=== PATIENT | female | born 1940 | race Caucasian/White ===

== ENCOUNTER 2017-11-14 11:14 | Emergency (ER) | payer MEDICARE, OTHER ==
[~2017-11-14] VITALS: Ht 154.9 cm; Wt 81.0 kg
[~2017-11-14 11:14] MED LIST: AMLO10 PO; DOCU1CAP39 PO; FERR324T4 PO; Hydrocodone/Acetaminophen PO; LEVA750T PO; MELO7.5T PO; PRED10 PO; PROT40TA PO; WARF5 PO
[2017-11-14 11:19] VITALS: BP 161/68; PULSE 69; RESP 16; TEMP 98.6; O2SAT 98
--- NOTE | 2017-11-14 11:38 | PD ---
HPI Chief Complaint: Complaint Time Seen by Provider: 11:30 Travel History International Travel<30 days: No Contact w/Intl Traveler<30days: No Traveled to known affect area: No History of Present Illness HPI The patient was seen and examined in the presence of the nurse. This patient complains of dysuria. She has been on Cipro for 4 days for UTI. She has long- standing history of bladder and urinary problems. She does have a local urologist but cannot recall their name. Sometimes she does self catheterizations and other times she can urinate. She noticed some blood in the urine yesterday. She denies fever or flank pain. Symptom severity is moderate. No alleviating factors. No exacerbating factors. PFSH Past Medical History Hx Anticoagulant Therapy: Yes Arthritis: Yes (both knees) Anxiety: Yes Cardiovascular Problems: No High Cholesterol: Yes Chemotherapy: No Cerebrovascular Accident: No Coronary Artery Disease: Yes Diminished Hearing: No Endocrine: No Fibromyalgia: Yes GERD: Yes Genitourinary: No Immune Disorder: No Musculoskeletal: No Neurologic: Yes Psychiatric: No Reproductive: No Immunizations Current: No Migraines: No Radiation Therapy: No Seizures: No Menopausal: Yes Tubal Ligation: Yes Past Surgical History Abdominal Surgery: No AICD: No Arteriovenous Shunt: No Cardiac Surgery: No Ear Surgery: No Endocrine Surgery: No Eye Surgery: No Genitourinary Surgery: No Gynecologic Surgery: Yes (hysterectomy) Hysterectomy: Yes Insulin Pump: No Oral Surgery: Yes (teeth extracted at 19) Pacemaker: No Thoracic Surgery: No Tonsillectomy: Yes Social History Alcohol Use: No Tobacco Use: No (QUIT 35+ YRS AGO SMOKED 1 PPD OF CIGS FOR 20+ YRS) Substance Use: No Allergies-Medications (Allergen,Severity, Reaction): Coded Allergies: penicillin G (Unverified Allergy, Severe, RASH, 11/14/17) codeine (Unverified Allergy, Intermediate, Nausea/Vomiting, 11/14/17) phenazopyridine (Verified Allergy, Unknown, Nausea/Vomiting, 11/14/17) sulfamethoxazole (Unverified Allergy, Unknown, CAN'T REMEMBER, 11/14/17) trimethoprim (Unverified Allergy, Unknown, CAN'T REMEMBER, 11/14/17) Reported Meds & Prescriptions Reported Meds & Active Scripts Active [Hydrocodone/Acetaminophen] 1 TAB Tab 1 Tab PO Q6HR PRN Reported Ventolin Hfa 18 GM Inh (Albuterol Sulfate) 90 Mcg/Act Aer 1 Puff INH Q4H PRN Multi-Vitamin Daily (Multiple Vitamin) 1 Tab Tab 1 Tab PO DAILY Alendronate (Alendronate Sodium) 70 Mg Tab 70 Mg PO Q7D Metoprolol Tartrate 50 Mg Tab 50 Mg PO DAILY Ranitidine (Ranitidine HCl) 150 Mg Tab 150 Mg PO DAILY Cipro (Ciprofloxacin HCl) 250 Mg Tab 250 Mg PO BID Protonix (Pantoprazole Sodium) 40 Mg Tab 40 Mg PO DAILY Mobic (Meloxicam) 7.5 Mg Tab 7.5 Mg PO DAILY Review of Systems General / Constitutional: No: Fever Eyes: No: Visual changes HENT: No: Headaches Cardiovascular: No: Chest Pain or Discomfort Respiratory: No: Shortness of Breath Gastrointestinal: No: Abdominal Pain Genitourinary: Positive: Urgency, Dysuria, Hematuria Musculoskeletal: No: Pain Skin: No Rash Neurologic: No: Weakness Psychiatric: No: Depression Endocrine: No: Polydipsia Hematologic/Lymphatic: No: Easy Bruising Physical Exam Narrative GENERAL: Well-nourished, well-developed patient. SKIN: Focused skin assessment warm/dry. HEAD: Normocephalic. EYES: No scleral icterus. No injection or drainage. NECK: Supple, trachea midline. No JVD or lymphadenopathy. CARDIOVASCULAR: Regular rate and rhythm without murmurs, gallops, or rubs. RESPIRATORY: Breath sounds equal bilaterally. No accessory muscle use. GASTROINTESTINAL: Abdomen soft, non-tender, nondistended. MUSCULOSKELETAL: No cyanosis, or edema. BACK: Nontender without obvious deformity. No CVA tenderness. Data Data Last Documented VS Vital Signs Date Time Temp Pulse Resp B/P (MAP) Pulse Ox O2 Delivery O2 Flow Rate FiO2 11/14/17 11:19 98.6 69 16 161/68 (99) 98 Orders Orders Urinalysis - C+S If Indicated (11/14/17 11:35) Urine Culture (11/14/17 11:42) Labs Laboratory Tests Test 11/14/17 11:42 Urine Collection Type CLEAN CATCH Urine Color YELLOW Urine Turbidity CLEAR Urine pH 6.0 Urine Specific [place] 1.010 Urine Protein TRACE mg/dL Urine Glucose (UA) NEG mg/dL Urine Ketones NEG mg/dL Urine Occult Blood LARGE Urine Nitrite NEG Urine Bilirubin NEG Urine Urobilinogen 0.2 MG/DL Urine Leukocyte Esterase SMALL Urine RBC 15-19 /hpf Urine WBC 9-14 /hpf Urine WBC Clumps FEW Urine Squamous Epithelial Cells 0-3 /hpf Urine Bacteria RARE /hpf Urine Mucus RARE /lpf Microscopic Urinalysis Comment CULTURE INDICATED MDM Medical Decision Making Medical Screen Exam Complete: Yes Emergency Medical Condition: Yes Medical Record Reviewed: Yes Differential Diagnosis Cystitis, pyelonephritis, UTI Narrative Course I have reviewed the patient's electronic medical record. Urinalysis shows some inflammatory cells and some RBCs We are going to culture this. Switching her to Macrobid, she has an appointment with her physician on Thursday, 2 days from now Diagnosis Primary Impression: Cystitis Additional Instructions: The patient was advised to follow up with their physician and return if they worsen. Med/Other Pt SpecificInfo: Prescription(s) given Scripts Nitrofurantoin Monohydrate Macrocrystals (Macrobid) 100 Mg Capsule 100 MG PO BID for Infection, #10 CAP 0 Refills Prov: Yuan Marrero MD 11/14/17 Disposition: DISCHARGE HOME Condition: Stable Yuan Marrero MD Nov 14, 2017 11:38
[2017-11-14] MEDS ORDERED: MULT-65 PO (11:39)
[2017-11-14] MEDS ORDERED: ALEN1TAB48 PO (11:39)
[2017-11-14] MEDS ORDERED: VENTAER INH (11:39)
[2017-11-14] MEDS ORDERED: METO50TA PO (11:39)
[2017-11-14] MEDS ORDERED: PROT40TA PO (11:39)
[2017-11-14] MEDS ORDERED: RANI150T PO (11:39)
[2017-11-14] MEDS ORDERED: MOBI7.5T PO (11:39)
[2017-11-14] MEDS ORDERED: CIPR250T52 PO (11:39)
[2017-11-14 11:48] LABS: BILIRUBIN, URINE NEG (NEG); BLOOD, URINE LARGE (NEG); GLUCOSE,URINE NEG (NEG); KETONE, URINE NEG (NEG); NITRITE,URINE NEG (NEG); URINE COLOR YELLOW (YELLW/STRAW); URINE LEUKOCYTE ESTERASE SMALL (NEG)
[2017-11-14 11:57] LABS: BACTERIA, URINE RARE /hpf; MUCUS URINE RARE /lpf (OCC); RBC, URINE 15-19 /hpf (0-3); SQUAMOUS EPITHELIAL CELL URINE 0-3 /hpf (0-5); WHITE BLOOD CELL CLUMPS FEW
[2017-11-14] MEDS ORDERED: MACR100C2 PO (12:07)
== END 2017-11-14 12:16 | disposition home or self-care (01) ==
LOC: PHED 11:14
DX: N30.90 Cystitis, unspecified without hematuria (principal); M17.9 Osteoarthritis of knee, unspecified; E78.00 Pure hypercholesterolemia, unspecified; I25.10 Atherosclerotic heart disease of native coronary artery without angina pectoris; M79.7 Fibromyalgia; K21.9 Gastro-esophageal reflux disease without esophagitis; Z79.51 Long term (current) use of inhaled steroids; Z79.899 Other long term (current) drug therapy; Z88.0 Allergy status to penicillin; Z88.5 Allergy status to narcotic agent; Z88.2 Allergy status to sulfonamides; Z88.8 Allergy status to other drugs, medicaments and biological substances; Z87.891 Personal history of nicotine dependence
CPT/HCPCS: 81001; 87086; 99283

== ENCOUNTER 2018-02-18 11:49 | Inpatient (IN) ==
--- NOTE | 2018-02-18 12:24 | ED ---
HPI General Chief complaint: Respiratory Symptoms Stated complaint: trouble breathing "due to shots" Time Seen by Provider: 02/18/18 12:11 History of Present Illness HPI narrative: 77-year-old female presents for evaluation of dyspnea. She reports that 4 days ago she had injections performed in her back for pain by her industrial painter Dr. Sabillon. She is uncertain specifically what the injections were but she points to the mid back region as the location where the injections were being performed. She reports that she continues to medicine in her mouth while this was being done. She reports that she developed dyspnea soon thereafter and she was told by her primary care physician that if she develops dyspnea she should come to the emergency room. She reports that she feels like she cannot take a deep breath. Symptoms are mild to moderate, aggravated by walking or deep inspiration. She reports a slight cough but this is not new. She reports slight wheezing, history of COPD. She also reports history of pneumonia several times in the past and reports that this could be a concern. Per chart review she also has a history of PE in 2016, no longer on anticoagulants. She denies fevers, chills, chest pain, abdominal pain, lower extremity edema. She has no other complaints at this time. Related Data Home Medications Medication Instructions Recorded Confirmed albuterol sulfate [Ventolin HFA] 2 puff INHALATION Q4-6H PRN 02/18/18 02/18/18 alendronate 70 mg PO QWEEK 02/18/18 02/18/18 hydrocodone-acetaminophen 1 tab PO Q4-6H PRN 02/18/18 02/18/18 meloxicam 15 mg PO DAILY 02/18/18 02/18/18 metoprolol succinate 50 mg PO DAILY 02/18/18 02/18/18 omeprazole 20 mg PO DAILY 02/18/18 02/18/18 pantoprazole 40 mg PO DAILY 02/18/18 02/18/18 ranitidine HCl 150 mg PO DAILY 02/18/18 02/18/18 Allergies Allergy/AdvReac Type Severity Reaction Status Date / Time penicillin G Allergy Severe RASH Verified 02/18/18 11:58 codeine Allergy Intermediate Nausea/Vomi Verified 02/18/18 11:58 ting phenazopyridine Allergy Unknown Nausea/Vomi Verified 02/18/18 11:58 ting sulfamethoxazole Allergy Unknown CAN'T Verified 02/18/18 11:58 REMEMBER trimethoprim Allergy Unknown CAN'T Verified 02/18/18 11:58 REMEMBER Review of Systems ROS: all other systems reviewed are negative PMFSH Medical History Medical History COPD (chronic obstructive pulmonary disease) (Acute) Chronic pain (Acute) Fibromyalgia (Acute) GERD (gastroesophageal reflux disease) (Acute) History of skin cancer (Acute) Surgical History Surgical History History of bladder surgery (Acute) History of tubal ligation (Acute) Social History Social History Substance History: No History of Abuse Smoking Status: Former smoker How Often Do You Have a Drink Containing Alcohol: Never Exam Narrative Exam Narrative: GENERAL: Well-developed well-nourished female no acute distress SKIN: Warm and dry. HEAD: Atraumatic. Normocephalic. EYES: Pupils equal and round. No scleral icterus. No injection or drainage. ENT: No nasal bleeding or discharge. Mucous membranes pink and moist. NECK: Trachea midline. No JVD. CARDIOVASCULAR: Regular rate and rhythm. No murmur appreciated. RESPIRATORY: No accessory muscle use. Clear to auscultation. Breath sounds equal bilaterally. GASTROINTESTINAL: Abdomen soft, non-tender, nondistended. Hepatic and splenic margins not palpable. MUSCULOSKELETAL: No obvious deformities. No clubbing. No cyanosis. No edema. NEUROLOGICAL: Awake and alert. No obvious cranial nerve deficits. Motor grossly within normal limits. Normal speech. Course Initial Documented Vital Signs Temperature 98.7 F 02/18/18 11:54 Pulse Rate 78 02/18/18 11:54 Respiratory Rate 20 02/18/18 11:54 Blood Pressure 134/75 02/18/18 11:54 Pulse Oximetry 98 02/18/18 11:54 Last Documented Vital Signs Temperature 98.7 F 02/18/18 11:54 Pulse Rate 71 02/18/18 13:50 Respiratory Rate 16 02/18/18 13:50 Blood Pressure 150/72 H 02/18/18 13:50 Pulse Oximetry 93 L 02/18/18 13:08 Medical Decision Making DEN Attestation DEN supervised visit: Yes Attestation: I, Dr. Marrero, have reviewed the advance practice practitioner's documentation and am in agreement, met with the patient face to face, made the diagnosis, and the medical decision making was done by me. *My assessment and Findings: Patient undergoing extensive workup to evaluate her respiratory complaints. Chest x-ray reviewed. She does have history of PE. We are going to rule out PE with CTA of the chest. This is negative she will be discharged with some antibiotic therapy to cover respiratory infection. [facility] Narrative Medical decision making narrative: The patient was placed on ECG monitoring pulse oximetry. A 12 EKG was obtained revealing sinus rhythm, T-wave inversions noted in aVR, V1 and V2. Lab work, chest x-ray, DuoNeb treatment ordered. Chest x-ray reveals questionable small infiltrate left heart border potentially lingular infiltrate. No evidence of pneumothorax on chest x-ray. Given her history of PE, dyspnea, CT pulmonary angiogram has been ordered. Cardiac enzymes are negative. BNP is mildly elevated. CBC and BMP reviewed. lab technician reports that the IV infiltrated during contrast administration however there is an obvious large pneumothorax which would be consistent with her history of needle insertion procedure and therefore the CT was changed to noncontrast. X-ray reveals left-sided pneumothorax approximately 40% lung volume. The patient was placed on a nonrebreathing mask. Plan is for chest tube placement and admission. Medical Screen Exam Complete: Yes Emergency Medical Condition: Yes Differential Diagnosis Differential Diagnosis: Pneumothorax, COPD exacerbation, pleural effusion, pneumonia, pulmonary embolism, pleurisy, anxiety Lab Data Result diagrams: 02/18/18 12:35 02/18/18 12:35 Lab Results 02/18/18 02/18/18 02/18/18 Range/Units 12:35 12:35 12:35 CBC w Diff Auto diff final WBC 12.3 H (4.0-11.0) th/mm3 RBC 3.97 L (4.00-5.30) mil/mm3 Hgb 12.9 (11.6-15.3) gm/dL Hct 38.8 (35.0-46.0) % MCV 97.9 (80.0-100.0) fL MCH 32.6 (27.0-34.0) pg MCHC 33.3 (32.0-36.0) % RDW 12.8 (11.6-17.2) % Plt Count 427 (150-450) th/mm3 MPV 6.7 L (7.0-11.0) fL Neut % (Auto) 57.3 (16.0-70.0) % Lymph % (Auto) 31.2 (9.0-44.0) % [place] % (Auto) 8.7 H (0.0-8.0) % Eos % (Auto) 2.0 (0.0-4.0) % Baso % (Auto) 0.8 (0.0-2.0) % Neut # (Auto) 7.1 (1.8-7.7) th/mm3 Lymph # (Auto) 3.8 (1.0-4.8) th/mm3 [place] # (Auto) 1.1 H (0.0-0.9) th/mm3 Eos # (Auto) 0.2 (0.0-0.4) th/mm3 Baso # (Auto) 0.1 (0.0-0.2) th/mm3 WBC Differential . Differential Comment . PT 9.7 L (9.8-11.6) sec INR 1.0 Ratio APTT 23.9 L (24.3-30.1) sec Sodium 141 (136-145) meq/L Potassium 4.3 (3.5-5.1) meq/L Chloride 110 H (98-107) meq/L Carbon Dioxide 25.0 (21.0-32.0) meq/L Anion Gap 6 (5-15) meq/L BUN 35 H (7-18) mg/dL Creatinine 1.20 H (0.50-1.00) mg/dL Estimated GFR 44 L (>89) mL/min Random Glucose 88 (74-106) mg/dL Calcium 8.8 (8.5-10.1) mg/dL Magnesium 2.3 (1.5-2.5) mg/dL Total Bilirubin 0.5 (0.2-1.0) mg/dL AST 17 (15-37) U/L ALT 23 (10-53) U/L Alkaline Phosphatase 57 (45-117) U/L Total Creatine Kinase 35 (26-192) U/L Troponin I Less than 0.02 L (0.02-0.05) ng/mL B-Natriuretic Peptide (0-100) pg/mL Total Protein 6.8 (6.4-8.2) g/dL Albumin 3.5 (3.4-5.0) g/dL 02/18/18 Range/Units 12:35 CBC w Diff WBC (4.0-11.0) th/mm3 RBC (4.00-5.30) mil/mm3 Hgb (11.6-15.3) gm/dL Hct (35.0-46.0) % MCV (80.0-100.0) fL MCH (27.0-34.0) pg MCHC (32.0-36.0) % RDW (11.6-17.2) % Plt Count (150-450) th/mm3 MPV (7.0-11.0) fL Neut % (Auto) (16.0-70.0) % Lymph % (Auto) (9.0-44.0) % [place] % (Auto) (0.0-8.0) % Eos % (Auto) (0.0-4.0) % Baso % (Auto) (0.0-2.0) % Neut # (Auto) (1.8-7.7) th/mm3 Lymph # (Auto) (1.0-4.8) th/mm3 [place] # (Auto) (0.0-0.9) th/mm3 Eos # (Auto) (0.0-0.4) th/mm3 Baso # (Auto) (0.0-0.2) th/mm3 WBC Differential Differential Comment PT (9.8-11.6) sec INR Ratio APTT (24.3-30.1) sec Sodium (136-145) meq/L Potassium (3.5-5.1) meq/L Chloride (98-107) meq/L Carbon Dioxide (21.0-32.0) meq/L Anion Gap (5-15) meq/L BUN (7-18) mg/dL Creatinine (0.50-1.00) mg/dL Estimated GFR (>89) mL/min Random Glucose (74-106) mg/dL Calcium (8.5-10.1) mg/dL Magnesium (1.5-2.5) mg/dL Total Bilirubin (0.2-1.0) mg/dL AST (15-37) U/L ALT (10-53) U/L Alkaline Phosphatase (45-117) U/L Total Creatine Kinase (26-192) U/L Troponin I (0.02-0.05) ng/mL B-Natriuretic Peptide 208 H (0-100) pg/mL Total Protein (6.4-8.2) g/dL Albumin (3.4-5.0) g/dL Imaging Data Radiologist's impression: Chest X-Ray 02/18/18 12:19 CONCLUSION: Questionable small infiltrate in the left heart border could be a lingular pneumonia. Moderate size hiatal hernia. Chest CT 02/18/18 15:26 CONCLUSION: 1. Moderate-sized left pneumothorax. It's approximately 40% of the left hemithorax volume. Findings were relayed to the ED immediately after completion of the study. Discharge Plan Discharge Disposition Patient Disposition: 30 Still Patient Discharge Condition Condition: Stable Discharge Details Diagnosis: Pneumothorax Physicians Team ED Provider: Casper Reyez ED Midlevel Provider: Harsha Puri Primary Care Provider: Lani Santiago Rxs /Orders / Referrals /Forms Prescriptions: No Action metoprolol succinate 50 mg Tablet Extended Release 24 Hr 50 mg PO DAILY RF: 0 meloxicam 15 mg Tablet 15 mg PO DAILY RF: 0 alendronate 70 mg Tablet 70 mg PO QWEEK RF: 0 hydrocodone-acetaminophen 10-325 mg Tablet 1 tab PO Q4-6H PRN (Reason: Pain) RF: 0 pantoprazole 40 mg Tablet,Delayed Release (Dr/Ec) 40 mg PO DAILY RF: 0 ranitidine HCl 150 mg Tablet 150 mg PO DAILY RF: 0 albuterol sulfate [Ventolin HFA] 90 mcg/actuation Hfa Aerosol Inhaler 2 puff INHALATION Q4-6H PRN (Reason: Shortness Of Breath) RF: 0 omeprazole 20 mg Tablet,Delayed Release (Dr/Ec) 20 mg PO DAILY RF: 0 Status ED Status: With Doctor
[2018-02-18 12:45] LABS: Baso # (Auto) 0.1 th/mm3 (0.0-0.2); Baso % (Auto) 0.8 % (0.0-2.0); Eos # (Auto) 0.2 th/mm3 (0.0-0.4); Hematocrit 38.8 % (35.0-46.0); Hemoglobin 12.9 gm/dL (11.6-15.3); Lymph # (Auto) 3.8 th/mm3 (1.0-4.8); Lymph % (Auto) 31.2 % (9.0-44.0); Mean Corpuscular HGB Conc 33.3 % (32.0-36.0); Mean Corpuscular Hemoglobin 32.6 pg (27.0-34.0); Mean Corpuscular Volume 97.9 fL (80.0-100.0); Mean Platelet Volume 6.7 fL (7.0-11.0); Mono # (Auto) 1.1 th/mm3 (0.0-0.9); Mono % (Auto) 8.7 % (0.0-8.0); Neut # (Auto) 7.1 th/mm3 (1.8-7.7); Neut % (Auto) 57.3 % (16.0-70.0); Platelet Count 427 th/mm3 (150-450); Red Blood Count 3.97 mil/mm3 (4.00-5.30); Red Cell Distribution Width 12.8 % (11.6-17.2); White Blood Count 12.3 th/mm3 (4.0-11.0)
[2018-02-18 13:03] LABS: Chloride 110 meq/L (98-107); Potassium 4.3 meq/L (3.5-5.1); Sodium 141 meq/L (136-145)
[2018-02-18 13:06] LABS: Albumin 3.5 g/dL (3.4-5.0); Anion Gap 6 meq/L (5-15); Calcium 8.8 mg/dL (8.5-10.1)
[2018-02-18 13:07] LABS: Activated Partial Thrombo Time 23.9 sec (24.3-30.1); Blood Urea Nitrogen 35 mg/dL (7-18); Glucose,Random 88 mg/dL (74-106); Magnesium 2.3 mg/dL (1.5-2.5); Prothrombin Time 9.7 sec (9.8-11.6)
[2018-02-18 13:09] LABS: Alanine Aminotransferase 23 U/L (10-53); Aspartate Aminotransferase 17 U/L (15-37)
[2018-02-18 13:10] LABS: Glomerular Filtration Rate 44 mL/min (>89)
[2018-02-18 13:11] LABS: Total Protein 6.8 g/dL (6.4-8.2)
[2018-02-18 13:12] LABS: Alkaline Phosphatase 57 U/L (45-117)
[2018-02-18 13:15] LABS: Creatine Kinase 35 U/L (26-192)
[2018-02-18] MEDS ORDERED: Lidocaine 1% Inj 50 ML Vial INFILTRATN ONE (16:35)
[2018-02-18] MEDS ORDERED: Morphine Inj 4 MG/ML Vial IV.PUSH ONE (17:12)
[2018-02-18] MEDS ORDERED: Azithromycin Inj 500 MG in Sodium Chlor 0.9% Inj 250 ML IV.SIG ONE (17:56)
--- NOTE | 2018-02-18 18:40 | ED ---
HPI General Chief complaint: Respiratory Symptoms Stated complaint: trouble breathing "due to shots" Time Seen by Provider: 02/18/18 12:11 History of Present Illness HPI narrative: HPI narrative: 77-year-old female presents for evaluation of dyspnea. She reports that 4 days ago she had injections performed in her back for pain by her painter mirror Dr. Sabillon. She is uncertain specifically what the injections were but she points to the mid back region as the location where the injections were being performed. She reports that she continues to medicine in her mouth while this was being done. She reports that she developed dyspnea soon thereafter and she was told by her primary care physician that if she develops dyspnea she should come to the emergency room. She reports that she feels like she cannot take a deep breath. Symptoms are mild to moderate, aggravated by walking or deep inspiration. She reports a slight cough but this is not new. She reports slight wheezing, history of COPD. She also reports history of pneumonia several times in the past and reports that this could be a concern. Per chart review she also has a history of PE in 2016, no longer on anticoagulants. She denies fevers, chills, chest pain, abdominal pain, lower extremity edema. She has no other complaints at this time. Related Data Home Medications Medication Instructions Recorded Confirmed albuterol sulfate [Ventolin HFA] 2 puff INHALATION Q4-6H PRN 02/18/18 02/18/18 alendronate 70 mg PO QWEEK 02/18/18 02/18/18 hydrocodone-acetaminophen 1 tab PO Q4-6H PRN 02/18/18 02/18/18 meloxicam 15 mg PO DAILY 02/18/18 02/18/18 metoprolol succinate 50 mg PO DAILY 02/18/18 02/18/18 omeprazole 20 mg PO DAILY 02/18/18 02/18/18 pantoprazole 40 mg PO DAILY 02/18/18 02/18/18 ranitidine HCl 150 mg PO DAILY 02/18/18 02/18/18 Allergies Allergy/AdvReac Type Severity Reaction Status Date / Time penicillin G Allergy Severe RASH Verified 02/18/18 11:58 codeine Allergy Intermediate Nausea/Vomi Verified 02/18/18 11:58 ting phenazopyridine Allergy Unknown Nausea/Vomi Verified 02/18/18 11:58 ting sulfamethoxazole Allergy Unknown CAN'T Verified 02/18/18 11:58 REMEMBER trimethoprim Allergy Unknown CAN'T Verified 02/18/18 11:58 REMEMBER Review of Systems ROS: all other systems reviewed are negative [facility] Medical History Medical History COPD (chronic obstructive pulmonary disease) (Acute) Chronic pain (Acute) Fibromyalgia (Acute) GERD (gastroesophageal reflux disease) (Acute) History of skin cancer (Acute) Surgical History Surgical History History of bladder surgery (Acute) History of tubal ligation (Acute) Social History Social History Substance History: No History of Abuse Smoking Status: Former smoker How Often Do You Have a Drink Containing Alcohol: Never Immunization History Tetanus Immunization: <5 Years Hx Influenza Vaccine This Season: No Exam Narrative Exam Narrative: Exam Narrative: GENERAL: Well-developed well-nourished female no acute distress SKIN: Warm and dry. HEAD: Atraumatic. Normocephalic. EYES: Pupils equal and round. No scleral icterus. No injection or drainage. ENT: No nasal bleeding or discharge. Mucous membranes pink and moist. NECK: Trachea midline. No JVD. CARDIOVASCULAR: Regular rate and rhythm. No murmur appreciated. RESPIRATORY: No accessory muscle use. Clear to auscultation. Breath sounds equal bilaterally. GASTROINTESTINAL: Abdomen soft, non-tender, nondistended. Hepatic and splenic margins not palpable. MUSCULOSKELETAL: No obvious deformities. No clubbing. No cyanosis. No edema. NEUROLOGICAL: Awake and alert. No obvious cranial nerve deficits. Motor grossly within normal limits. Normal speech. Procedures Chest Tube Chest Tube 1: Chest Tube Location: Mid-Axillary Chest Tube Sutured to Skin: Yes Sterile Dressing Applied: Yes Anesthesia: 1% Lidocaine Progress: pig tail left Course Initial Documented Vital Signs Temperature 98.7 F 02/18/18 11:54 Pulse Rate 78 02/18/18 11:54 Respiratory Rate 20 02/18/18 11:54 Blood Pressure 134/75 02/18/18 11:54 Pulse Oximetry 98 02/18/18 11:54 Last Documented Vital Signs Temperature 98.7 F 02/18/18 11:54 Pulse Rate 68 02/18/18 16:53 Respiratory Rate 15 02/18/18 16:53 Blood Pressure 139/65 02/18/18 16:53 Pulse Oximetry 96 02/18/18 17:59 Medical Decision Making MDM Narrative Medical decision making narrative: The patient was placed on ECG monitoring pulse oximetry. A 12 EKG was obtained revealing sinus rhythm, T-wave inversions noted in aVR, V1 and V2. Lab work, chest x-ray, DuoNeb treatment ordered. Chest x-ray reveals questionable small infiltrate left heart border potentially lingular infiltrate. No evidence of pneumothorax on chest x-ray. Given her history of PE, dyspnea, CT pulmonary angiogram has been ordered. Cardiac enzymes are negative. BNP is mildly elevated. CBC and BMP reviewed. senior technologist reports that the IV infiltrated during contrast administration however there is an obvious large pneumothorax which would be consistent with her history of needle insertion procedure and therefore the CT was changed to noncontrast. ct reveals left-sided pneumothorax approximately 40% lung volume. Also evidence of left upper lobe consolidation and lingular consolidation. The patient was started on Rocephin and azithromycin. Allergy listed to penicillin , she has had Keflex in the past with no adverse reaction. Chest tube was placed by Dr. Reyez, see procedure note. Post chest tube/pigtail placement reveals correct placement and improvement in pneumothorax size. The patient was placed on a nonrebreathing mask. Dr Reyez spoke with simplex operator Dr. Mirza who is agreeable with admission to Dr. Orr. Medical Screen Exam Complete: Yes Emergency Medical Condition: Yes Differential Diagnosis Differential Diagnosis: Pneumothorax, pneumonia, pulmonary embolism Lab Data Result diagrams: 02/18/18 12:35 02/18/18 12:35 Lab Results 02/18/18 02/18/18 02/18/18 Range/Units 12:35 12:35 12:35 CBC w Diff Auto diff final WBC 12.3 H (4.0-11.0) th/mm3 RBC 3.97 L (4.00-5.30) mil/mm3 Hgb 12.9 (11.6-15.3) gm/dL Hct 38.8 (35.0-46.0) % MCV 97.9 (80.0-100.0) fL MCH 32.6 (27.0-34.0) pg MCHC 33.3 (32.0-36.0) % RDW 12.8 (11.6-17.2) % Plt Count 427 (150-450) th/mm3 MPV 6.7 L (7.0-11.0) fL Neut % (Auto) 57.3 (16.0-70.0) % Lymph % (Auto) 31.2 (9.0-44.0) % [place] % (Auto) 8.7 H (0.0-8.0) % Eos % (Auto) 2.0 (0.0-4.0) % Baso % (Auto) 0.8 (0.0-2.0) % Neut # (Auto) 7.1 (1.8-7.7) th/mm3 Lymph # (Auto) 3.8 (1.0-4.8) th/mm3 [place] # (Auto) 1.1 H (0.0-0.9) th/mm3 Eos # (Auto) 0.2 (0.0-0.4) th/mm3 Baso # (Auto) 0.1 (0.0-0.2) th/mm3 WBC Differential . Differential Comment . PT 9.7 L (9.8-11.6) sec INR 1.0 Ratio APTT 23.9 L (24.3-30.1) sec Sodium 141 (136-145) meq/L Potassium 4.3 (3.5-5.1) meq/L Chloride 110 H (98-107) meq/L Carbon Dioxide 25.0 (21.0-32.0) meq/L Anion Gap 6 (5-15) meq/L BUN 35 H (7-18) mg/dL Creatinine 1.20 H (0.50-1.00) mg/dL Estimated GFR 44 L (>89) mL/min Random Glucose 88 (74-106) mg/dL Calcium 8.8 (8.5-10.1) mg/dL Magnesium 2.3 (1.5-2.5) mg/dL Total Bilirubin 0.5 (0.2-1.0) mg/dL AST 17 (15-37) U/L ALT 23 (10-53) U/L Alkaline Phosphatase 57 (45-117) U/L Total Creatine Kinase 35 (26-192) U/L Troponin I Less than 0.02 L (0.02-0.05) ng/mL B-Natriuretic Peptide (0-100) pg/mL Total Protein 6.8 (6.4-8.2) g/dL Albumin 3.5 (3.4-5.0) g/dL 09/20/18 Range/Units 12:35 CBC w Diff WBC (4.0-11.0) th/mm3 RBC (4.00-5.30) mil/mm3 Hgb (11.6-15.3) gm/dL Hct (35.0-46.0) % MCV (80.0-100.0) fL MCH (27.0-34.0) pg MCHC (32.0-36.0) % RDW (11.6-17.2) % Plt Count (150-450) th/mm3 MPV (7.0-11.0) fL Neut % (Auto) (16.0-70.0) % Lymph % (Auto) (9.0-44.0) % [place] % (Auto) (0.0-8.0) % Eos % (Auto) (0.0-4.0) % Baso % (Auto) (0.0-2.0) % Neut # (Auto) (1.8-7.7) th/mm3 Lymph # (Auto) (1.0-4.8) th/mm3 [place] # (Auto) (0.0-0.9) th/mm3 Eos # (Auto) (0.0-0.4) th/mm3 Baso # (Auto) (0.0-0.2) th/mm3 WBC Differential Differential Comment PT (9.8-11.6) sec INR Ratio APTT (24.3-30.1) sec Sodium (136-145) meq/L Potassium (3.5-5.1) meq/L Chloride (98-107) meq/L Carbon Dioxide (21.0-32.0) meq/L Anion Gap (5-15) meq/L BUN (7-18) mg/dL Creatinine (0.50-1.00) mg/dL Estimated GFR (>89) mL/min Random Glucose (74-106) mg/dL Calcium (8.5-10.1) mg/dL Magnesium (1.5-2.5) mg/dL Total Bilirubin (0.2-1.0) mg/dL AST (15-37) U/L ALT (10-53) U/L Alkaline Phosphatase (45-117) U/L Total Creatine Kinase (26-192) U/L Troponin I (0.02-0.05) ng/mL B-Natriuretic Peptide 208 H (0-100) pg/mL Total Protein (6.4-8.2) g/dL Albumin (3.4-5.0) g/dL Imaging Data Radiologist's impression: Chest X-Ray 02/18/18 12:19 CONCLUSION: Questionable small infiltrate in the left heart border could be a lingular pneumonia. Moderate size hiatal hernia. Chest CT 02/18/18 15:26 CONCLUSION: 1. Moderate-sized left pneumothorax. It's approximately 40% of the left hemithorax volume. Findings were relayed to the ED immediately after completion of the study. Chest X-Ray 02/18/18 17:32 CONCLUSION: Placement of small-caliber left chest tube with near complete resolution of previous left pneumothorax. Discharge Plan Discharge Disposition Patient Disposition: 30 Still Patient Discharge Condition Condition: Stable Discharge Details Diagnosis: Pneumothorax, Pneumonia Physicians Team ED Provider: Casper Reyez ED Midlevel Provider: Harsha Puri Primary Care Provider: Lani Santiago Attending Provider: Shima Orr Status ED Status: Admitted Patient
[2018-02-19] MEDS ORDERED: Ketorolac Inj 30 MG/ML (IVP) Vial IV.PUSH PRN (03:19)
[2018-02-19] MEDS ORDERED: Morphine Inj 4 MG/ML Vial IV.PUSH PRN (03:21)
[2018-02-19] MEDS ORDERED: Bisacodyl 10 MG Supp RECTAL PRN (03:21)
[2018-02-19] MEDS ORDERED: Melatonin 5 MG Tablet PO ONE (03:39)
[2018-02-19] MEDS ORDERED: Chlorhexidine Gluconate 2% 1 Pack (2 Cloths) TOPICAL PRN (04:00)
[2018-02-19] MEDS: Chlorhexidine Gluconate 2% 1 Pack (2 Cloths) TOPICAL SCH (06:50)
[2018-02-19] MEDS: Enoxaparin Inj 40 MG/0.4 ML Syringe SQ SCH (08:13)
[2018-02-19] MEDS: levoFLOXacin 500 MG Tablet PO SCH (08:13)
[2018-02-19] MEDS: Senna/Docusate Sodium 8.6/50 MG Tablet PO SCH ×2 (08:14→20:18)
[2018-02-19] MEDS ORDERED: Famotidine 20 MG Tablet PO SCH (09:00)
[2018-02-19] MEDS ORDERED: Melatonin 5 MG Tablet PO PRN (21:05)
[2018-02-20] MEDS: Chlorhexidine Gluconate 2% 1 Pack (2 Cloths) TOPICAL SCH (04:14)
[2018-02-20 05:12] LABS: Baso % (Auto) 0.5 % (0.0-2.0); Eos # (Auto) 0.5 th/mm3 (0.0-0.4); Eos % (Auto) 5.7 % (0.0-4.0); Hematocrit 34.9 % (35.0-46.0); Hemoglobin 11.8 gm/dL (11.6-15.3); Lymph # (Auto) 3.2 th/mm3 (1.0-4.8); Lymph % (Auto) 37.7 % (9.0-44.0); Mean Corpuscular HGB Conc 33.9 % (32.0-36.0); Mean Corpuscular Hemoglobin 33.1 pg (27.0-34.0); Mean Corpuscular Volume 97.7 fL (80.0-100.0); Mean Platelet Volume 6.8 fL (7.0-11.0); Mono # (Auto) 0.7 th/mm3 (0.0-0.9); Mono % (Auto) 7.8 % (0.0-8.0); Neut # (Auto) 4.1 th/mm3 (1.8-7.7); Neut % (Auto) 48.3 % (16.0-70.0); Platelet Count 331 th/mm3 (150-450); Red Blood Count 3.58 mil/mm3 (4.00-5.30); White Blood Count 8.4 th/mm3 (4.0-11.0)
[2018-02-20 05:39] LABS: Calcium 8.8 mg/dL (8.5-10.1); Carbon Dioxide 24.7 meq/L (21.0-32.0); Magnesium 2.3 mg/dL (1.5-2.5); Phosphorus 4.4 mg/dL (2.5-4.9); Potassium 4.1 meq/L (3.5-5.1)
[2018-02-20] MEDS: Enoxaparin Inj 40 MG/0.4 ML Syringe SQ SCH (10:04)
[2018-02-20] MEDS: Senna/Docusate Sodium 8.6/50 MG Tablet PO SCH (10:04)
[2018-02-20] MEDS: levoFLOXacin 500 MG Tablet PO SCH (10:05)
--- NOTE | 2018-02-20 13:37 | ECG ---
Date Performed: 02/18/2018 Time Performed: 12:36:33 PTAGE: 77 years EKG: Sinus rhythm LOW QRS VOLTAGE IN PRECORDIAL LEADS POSSIBLE RIGHT VENTRICULAR CONDUCTION DELAY ST/T WAVE CHANGES AN TERIORLY, CONSIDER ISCHEMIA BORDERLINE ECG PREVIOUS TRACING : 09/23/2015 13.36 Since the previous tracing, no significant change noted DOCTOR: Dick Lackey Interpretating Date/Time 02/20/2018 13:35:04
== END 2018-02-20 17:14 | disposition home or self-care (01) ==
LOC: PHED 11:49 → PHEDA 17:48 → HIMC 21:10 → HCIS 02-19 08:42
PROVIDERS: ADMIT Hospitalist; ATTEND Hospitalist